=== PATIENT | female | born 1955 | race Caucasian/White ===

== ENCOUNTER 2022-07-28 07:30 | Observation (INO) | payer BC ==
[2022-07-25 09:38] VITALS: BMI 23.6
[2022-07-28 09:07] LABS: #Basophils 0.1 thou/uL (0.0-0.2); #Eosinphils 0.3 thou/uL (0.0-0.7); #Lymphocytes 3.2 thou/uL (1.20-3.40); #Monocytes 0.6 thou/uL (0.11-0.59); #Neutrophils 3.8 thou/uL (1.40-6.50); %Basophils 0.8 % (0.0-1.0); %Eosinophils 3.8 % (0.0-10.0); %Lymphocytes 40.7 % (21.0-51.0); %Monocytes 7.1 % (0.0-10.0); %Neutrophils 47.6 % (42.0-75.0); Mean Corpuscular HGB CONC 32.7 g/dL (32.0-36.0); Mean Corpuscular Hemoglobin 32.2 pg (27.0-31.0); Mean Corpuscular Volume 98.3 fl (78.0-98.0); Mean Platelet Volume 7.7 fL (7.4-10.4); Platelet Count 243 10x3/uL (130-400); RBC Distribution Width 10.9 % (11.5-14.5); Red Blood Cell (RBC) Count 4.36 mill/uL (4.20-5.40); White Blood Cell (WBC) Count 7.9 10x3/uL (4.8-10.8)
[2022-07-28 09:27] LABS: Anion Gap 9 mmol/L (10-20); BUN (Urea Nitrogen) 16 mg/dL (9.8-20.1); Calc. Creatinine Clearance 75 mL/min (70-130); Carbon Dioxide 28 mmol/L (23-31); Chloride 104 mmol/L (98-107); Estimated GFR 95; Glucose 88 mg/dL (80-115); Sodium 137 mmol/L (136-145)
[2022-07-28] MEDS ORDERED: Milk Of Magnesia 30 ML UDCUP PO PRN (09:51)
[2022-07-28] MEDS ORDERED: Mag-Al 1200 mg/1200 mg/30 ML UDCUP PO PRN (09:51)
[2022-07-28] MEDS ORDERED: traMADol HCl 50 MG TAB PO PRN (09:51)
[2022-07-28] MEDS ORDERED: HYDROcodone/Acetaminophen 10/325 mg Tablet PO PRN (09:51)
[2022-07-28] MEDS ORDERED: Ondansetron PF 4 MG/2 ML Vial IVP PRN (09:51)
[2022-07-28] MEDS ORDERED: Promethazine 25 MG TAB PO PRN (09:51)
[2022-07-28] MEDS ORDERED: Zolpidem Tartrate 5 MG TAB PO PRN (09:51)
[2022-07-28] MEDS ORDERED: Dexmedetomidine 200 MCG/2 ML VIAL ONE (10:01)
[2022-07-28] MEDS ORDERED: fentaNYL PF 100 MCG/2 ML SYRINGE ONE (10:01)
[2022-07-28] MEDS ORDERED: Morphine 4 MG/ML VIAL SLOW IVP PRN (10:04)
[2022-07-28] MEDS ORDERED: CEFAZOLIN 2 GM VIAL ONE (10:15)
[2022-07-28] MEDS ORDERED: Sodium Chloride 0.9% 100 ML ONE (10:15)
[2022-07-28] MEDS ORDERED: Ondansetron PF 4 MG/2 ML Vial ONE (10:28)
[2022-07-28] MEDS ORDERED: PHENYLEPHRINE-NS 100 MCG/ML 10 ML SYRINGE ONE (10:28)
[2022-07-28] MEDS ORDERED: Glycopyrrolate 0.2 MG/ML 5 ML SYRINGE ONE (10:28)
[2022-07-28] MEDS ORDERED: Rocuronium Bromide 10 MG/ML (10ML VIAL) ONE (10:28)
[2022-07-28] MEDS ORDERED: Dexamethasone 20 MG/5 ML VIAL ONE (10:28)
[2022-07-28] MEDS ORDERED: Propofol 1,000 MG/100 ML VIAL IV ONE (10:28)
[2022-07-28] MEDS ORDERED: NEOSTIGMINE 3 MG/3 ML SYR 3 MG/3 ML SYRINGE ONE (10:28)
[2022-07-28] MEDS ORDERED: ePHEDrine Sulfate 50 MG/10 ML VIAL ONE (11:48)
[2022-07-28] MEDS ORDERED: FENTANYL 50 MCG/ML 1 ML VIAL ONE ×2 (11:55→12:35)
[2022-07-28] MEDS ORDERED: HYDROmorphone 0.5 MG/0.5 ML SYRINGE ONE (12:06)
[2022-07-28] MEDS ORDERED: Promethazine HCl 25 MG/ML VIAL ONE (12:17)
[2022-07-28] MEDS ORDERED: Ketorolac Tromethamine 30 MG/ML VIAL ONE (12:21)
[2022-07-28] MEDS ORDERED: HYDROmorphone 2 MG/ML VIAL SLOW IVP PRN (13:30)
[2022-07-28] MEDS ORDERED: Promethazine HCl 25 MG/ML VIAL IM/IV PRN (13:30)
[2022-07-28] MEDS ORDERED: Ondansetron HCl/PF 4 MG/2 ML Vial IVP PRN (13:30)
[2022-07-28] MEDS ORDERED: Ketorolac Tromethamine 30 MG/ML VIAL IM/IV PRN (13:30)
[2022-07-28] MEDS: CEFAZOLIN 2 GM in Sodium Chloride 0.9% 100 ML IVPB SCH ×2 (14:06→17:47)
[2022-07-28] MEDS: Sodium Chloride 0.9% 1,000 ML IV SCH (14:06)
[2022-07-28 14:12] LABS: SARS-CoV-2 NAA Rapid Test Not Detected (NotDetected)
[2022-07-28] MEDS: Gabapentin 300 MG CAP PO SCH ×3 (14:26→20:10)
[2022-07-28] MEDS: HYDROcodone/Acetaminophen 10/325 mg Tablet PO PRN (20:10)
[2022-07-29] MEDS: Sodium Chloride 0.9% 1,000 ML IV SCH ×2 (01:24→10:32)
[2022-07-29] MEDS: HYDROcodone/Acetaminophen 10/325 mg Tablet PO PRN ×3 (02:50→13:30)
[2022-07-29] MEDS: CEFAZOLIN 2 GM in Sodium Chloride 0.9% 100 ML IVPB SCH ×2 (02:50→10:32)
[2022-07-29] MEDS: Gabapentin 300 MG CAP PO SCH ×2 (08:20→13:29)
[2022-07-29] MEDS ORDERED: Sertraline 100 MG TAB PO SCH (09:00)
[2022-07-29 12:24] VITALS: BP 117/75; TEMP 98.6
== END 2022-07-29 15:48 | disposition home or self-care (01) ==
LOC: SDC 07:30 → SURG B 13:52
PROVIDERS: ADMIT Neurological Surgery; ATTEND Neurological Surgery
PROC: 01NB0ZZ Release Lumbar Nerve, Open Approach (ICD-10-PCS; principal; 2022-07-28)
PROC: 01NR0ZZ Release Sacral Nerve, Open Approach (ICD-10-PCS; 2022-07-28)
DX: M48.062 Spinal stenosis, lumbar region with neurogenic claudication (principal); M48.07 Spinal stenosis, lumbosacral region; M47.816 Spondylosis without myelopathy or radiculopathy, lumbar region; E78.5 Hyperlipidemia, unspecified; Z79.899 Other long term (current) drug therapy; Z20.822 Contact with and (suspected) exposure to COVID-19
CPT/HCPCS: 36415; 80048; 85025; 93005; 93010; J1100; J1170; J1885; J2405; J2550; J2704; J3010; J3370; J3490; Q0169; U0002